=== PATIENT | male | born 1990 | race Caucasian/White ===

== ENCOUNTER 2024-03-19 11:20 | Emergency (ER) | payer OTHER, SELFPAY ==
[2024-03-19 11:24] VITALS: BP 143/107
--- NOTE | 2024-03-19 13:06 | ED.GENMED ---
History of Present Illness
General
Chief Complaint: Breathing Problem
Source: patient
Exam Limitations: none
Time Seen by Provider: 03/19/24 12:31
Nursing documentation reviewed up to this point in time: agreed with
History of Present Illness
History of Present Illness:
33-year-old male with a past medical history of mild asthma, celiac disease who presents to the emergency department for evaluation of cough and shortness of breath. Patient reports onset of symptoms 1 to 2 weeks ago and have been persistent since
then. He reports after the first few days of symptoms he had a telemedicine appointment through his insurance company and was prescribed a 5-day burst of prednisone and was using his rescue albuterol inhaler but this did not help his symptoms.
Last week decided to go to urgent care and he says he had a chest x-ray which was reportedly negative and was given a Z-Dionisio to cover for any potential developing pneumonia and told to continue using his inhaler. This did not help and so he decided
to come to the emergency room today. He reports hacking cough productive of clear sputum. He reports mild associated shortness of breath. He has not had any fever throughout he says. He has not noticed any swelling in the legs. He has not had
any chest pain, abdominal pain, GI issues or any other complaints he says.
Past History
Past History
ED Past Medical History: Other (Strabismus)
ED Past Surgical History: Other (Hernia repair)
Social History
Tobacco: Non-smoker
Alcohol: None
Drug: None
Personal: Single
Living: with family
Employment: Employed
Family History
Family History: Other (Noncontributory)
Review of Systems
Review of Systems
All Other Systems: ROS reviewed and negative except as documented in HPI and ROS
Constitutional: Denies fever or chills
EENT: Denies sore throat or runny nose
Respiratory: Reports cough and trouble breathing
Cardiac: Denies chest pain or palpitations
ABD/GI: Denies abdominal pain, nausea or vomiting
Musculoskeletal: Denies edema
Phy Exam
Physical Exam
Physical Exam:
General: Awake, alert, oriented x3; no acute distress
Head: Normocephalic, atraumatic
Eyes: Conjunctiva normal
Throat: Airway intact, handling secretions, moist mucous membranes
Neck: Trachea midline, no JVD
Lungs: Frequent coughing and occasional scattered wheezing on lung auscultation; normal respiratory rate, normal work of breathing, normal pulse ox on room air
Heart: Regular rate and rhythm, no murmurs, gallops, or rubs appreciated
Abd: Soft, non distended, nontender
Neuro: No gross deficits
Extremities: No edema in extremities, warm and well-perfused
Scores
Heart Failure Risk
Heart Failure Risk Score: Not Applicable
Heart Score for Chest Pain Patients
STEMI patient?: Not applicable
Withdrawal Assessment of Alcohol
Withdrawal Assessment Completed?: Not applicable
Course
Orders/Labs/Results
Orders:
Orders
03/19/24 12:32
CR Chest - 2 Views Urgent
Comment:
Reason For Exam: sob, cough
03/19/24 13:03
Prednisone [Deltasone] 50 mg PO NOW STA
Vital Signs
Initial and Last Documented VS:
Initial Vital Signs
Temp Pulse Resp BP Pulse Ox
36.6 C 92 16 143/107 98
03/19/24 11:24 03/19/24 11:24 03/19/24 11:24 03/19/24 11:24 03/19/24 11:24
Last Documented Vital Signs
Temp Pulse Resp BP Pulse Ox
36.6 C 85 21 143/107 100
03/19/24 11:24 03/19/24 12:30 03/19/24 12:30 03/19/24 11:24 03/19/24 12:30
MDM/Problems Addressed
Differential Diagnosis Includes:
Asthma exacerbation, bronchitis, pneumonia, pneumothorax less likely based on exam
MDM/Problems Addressed:
33-year-old male presents to the emergency room for evaluation of shortness of breath and coughing for the past 10 to 14 days. Trialed short burst of steroids, azithromycin, albuterol but still symptomatic. Vitals and exam as above. Sent for
chest x-ray reviewed by me shows no pneumothorax, no pneumonia or other acute disease. Suspect that this is likely asthma exacerbation. He has normal respiratory rate, normal pulse ox and only mild scattered wheeze on lung auscultation. Will plan
to start on more prolonged oral steroid taper and can start on inhaled steroid as well. Advised to continue regular albuterol use for the next few days. Follow-up with PCP as an outpatient. Patient comfortable with this plan. All questions
answered.
Chronic conditions affecting care:
Asthma
Acute Exacerbation and/or Progression of Chronic Illness:
Acutely hypertensive without signs or symptoms of hypertensive emergency�no indication for emergent antihypertensive treatment
Acute Exacerbation and/or Progression of Chronic Illness: HTN
*Radiology
Radiology exam reviewed: preliminary read by ED provider
*Pulse Oximetry
Patient hypoxic: no
*Critical Care Note
Total Time (30-74mins, 75-104mins- exclusive of procedures): Not Applicable
Data Reviewed
Source: patient
ED Attending Note
-
Portions of this chart may have been created with voice recognition software.� Occasional wrong word or��sound alike� substitutions may have occurred due to the inherent limitations of voice recognition software.
Discharge Plan
Departure
Patient Disposition: Home (Routine Discharge)
Date of Disposition: 03/19/24
Time of Disposition: 13:06
Patient with high blood pressure during this ER visit?: Yes
Discharge Problem:
Asthma exacerbation
Instructions: Asthma, Adult (DC), Acute Bronchitis, Adult (DC)
Prescriptions:
New
prednisone 10 mg Tablet
See Rx Instructions .ROUTE .COMPLEX Qty: 45 0RF
Rx Instructions:
Take By Mouth:
50 mg daily x3 days, 40 mg daily x3 days,
30 mg daily x3 days, 20 mg daily x3 days,
10 mg daily x3 days
budesonide 180 mcg/actuation aerosol powdr breath activated
1 inh inhalation BID Qty: 1 0RF
albuterol sulfate 90 mcg/actuation HFA aerosol inhaler
2 puff inhalation Q4HPRN PRN (Reason: shortness of breath or wheezing) Qty: 8.5 0RF
No Action
tinidazole 500 mg tablet
2 g PO ONCE Qty: 4 0RF
sulfamethoxazole-trimethoprim [Bactrim DS] 800-160 mg tablet
1 tab PO BID Qty: 14 0RF
Referrals:
Yovanny Ma CRNP [Family Provider] - Follow up in 2-3 days
Activity Restrictions/Additional Instructions:
Thank you for visiting the Emergency Department at [facility].
1. Please schedule a follow up appointment as directed. Call first thing tomorrow morning to make an appointment.
2. If indicated, please take your medications as instructed and indicated on discharge paperwork.
3. If any of your symptoms do not improve, or persist, or become more severe within 6-12 hours, please return to the emergency department for further care.
4. Please return to the emergency department if you develop a headache, neck pain/stiffness, fever greater than 100.4F, chest pain, shortness of breath, persistent nausea, vomiting, slurred speech, difficulty walking, numbness/tingling, weakness,
signs of infection or any other symptoms that are worrisome to you.
Please call [phone] if you have any questions.
Interventions
Interventions:
*Risk Screen - Suicide Last Done: 03/19/24 11:39
*General Assessment Last Done: 03/19/24 11:39
*Neglect/Abuse Screening Last Done: 03/19/24 11:39
*ED COVID-19 Vaccine History Last Done: 03/19/24 11:39
ED- Cardiac Assessment Last Done: 03/19/24 11:39
ED- Pulmonary Assessment Last Done: 03/19/24 11:39
Discharge Date and Time
Print Language: INDONESIAN
[2024-03-19] MEDS: DELTASONE 50 MG PO (13:13)
== END 2024-03-19 13:19 | disposition home or self-care (01) ==
LOC: EMR 11:20
PROVIDERS: EMERGENCY PHYSICIAN Emergency Medicine; FAMILY PHYSICIAN Nurse Practitioner Family
DX: J45.901 Unspecified asthma with (acute) exacerbation (principal); K90.0 Celiac disease; F32.A Depression, unspecified; Z88.1 Allergy status to other antibiotic agents
CPT/HCPCS: 99283; 71046